=== PATIENT | female | born 1945 | race Caucasian/White ===

== ENCOUNTER 2016-03-27 15:44 | Emergency (ER) | payer MEDICARE ==
[2016-03-27 15:50] VITALS: PULSE 82; TEMP 97.5; BMI 24.6
--- NOTE | 2016-03-27 16:29 | DIRPT ---
CLINICAL DATA: Pain in left clavicle after falling today. EXAM: LEFT CLAVICLE - 2+ VIEWS COMPARISON: Shoulder films, dictated separately. Shoulder films of 02/08/2015 also reviewed. FINDINGS: Degenerative irregularity of the acromioclavicular joint. Visualized portion of the left hemithorax is normal. No acute fracture or dislocation. IMPRESSION: Degenerative change, without acute osseous finding. Electronically Signed By: Ross Moore M.D. On: 03/27/2016 16:27
--- NOTE | 2016-03-27 16:37 | DIRPT ---
CLINICAL DATA: 70-year-old who fell in her bathroom at home earlier today and injured the left shoulder. Initial encounter. EXAM: LEFT SHOULDER - 2+ VIEW COMPARISON: 02/08/2015. FINDINGS: No evidence of acute fracture or glenohumeral dislocation. Subacromial space well preserved. Severe degenerative changes involving the acromioclavicular joint as noted previously. Bone mineral density well-preserved for age. IMPRESSION: No acute osseous abnormality. 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 Electronically Signed By: Destin Fajardo M.D. On: 03/27/2016 16:34
[2016-03-27] MEDS ORDERED: Pharmacy Review for Metformin - IV Contrast Given SCH (17:00)
--- NOTE | 2016-03-27 17:10 | EDPRACDOC ---
- General Chief Complaint: Fall Stated Complaint: BROKEN COLLARBONE - HAS NOTE TO SEE DR. HEATH Time Seen by Provider: 03/27/16 16:29 Information Source: Patient Exam Limitations: No Limitations - History of Present Illness Onset: today HPI: PT PRESENTS WITH PAIN AND SWELLING TO HER NECK AFTER SHE FELL TWO DAYS AGO. STATES SHE HAS HAD INCREASED PAIN TODAY THAN PREVIOUSLY. PT HAS BRUISING NOTED TO THE AREA. PT HAS FULL ROM OF THE LEFT SHOULDER. PT STATES SHE HAS NOTED A PRESSURE TYPE FEELING IN HER NECK AREA. DENIES FEVER, CHILLS, NAUSEA OR VOMITING. Pain Severity: Reports: Mild Injuries/Pain Location: Reports: neck Reason for Fall: Reports: lost balance Loss of Consciousness: no loss of consciousness Modifying Factors: improves with: immobilization Associated Symptoms (Fall): Reports: denies symptoms Allergies/Adverse Reactions: Allergies No Known Allergies Allergy (Verified 03/27/16 15:47) Home Medications: Ambulatory Orders Ondansetron [Zofran Odt] 4 mg PO Q6H PRN #10 tab.rapdis 02/08/15 ED Past Medical History - History Reviewed Yes Nurses notes reviewed and agree except as marked - Patient Medical History Surgical History: Reports: Hysterectomy, Other (BTL) - Social Medical History Smoking Status: Never smoker EDM Review of Systems - Review of Systems ROS Negative Except as Marked: Yes All systems reviewed and were negative except as marked - Physical Exam Constitutional: Alert Oriented to: Time, Person, Place Last recorded Vital Signs: Last Vital Signs Temp 97.5 F 03/27/16 15:47 Pulse 82 03/27/16 15:47 Resp 18 03/27/16 15:47 BP 163/90 03/27/16 15:47 Pulse Ox 95 03/27/16 15:47 Oxygen Pulse Oxygen Saturation 95 O2 Device Room Air Oxygen Flow Rate Fraction of Inspired Oxygen ( FIO2) - HEENT Head: Normal ( normocephalic) Eye Exam: Normal (PERRL, EOMI, Sclera white) Oropharynx: Normal (Pharynx:Moist without exudate,Gums-no swelling) Nose: No Symptoms Reported (septum midline) Neck: Edema, Midline, Tender. negative: Bony Tenderness, Crepitus, Denies Pain , In Collar, Limited ROM, Lymphadenopathy, Meningeal Signs, Paraspinal Tenderness, Step off, Thyromegaly, Tracheal Deviation - Respiratory/Cardiovascular Respiratory: Normal - CTA (BBS clear to auscultation without adventitious sounds ) Cardiovascular: Normal (RRR without murmur, gallop or rub) - GI Auscultation: Normal (NABS) Palpation: Normal (Soft,No rebound or guarding, non distended) Tenderness: Non tender Centeno's Sign: Negative Rectal Exam: Deferred - Musculoskeletal Back: Normal (Non-Tender) Extremities: Normal (Normal tone, Pulses 2+ No cyanosis or edema, FROM) - Integumentary Skin: Normal, Warm, Dry Lymphatics: Normal (no adenopathy) - Neurologic Memory Impaired: Normal Motor Function: Normal (Normal tone, Pulses 2+ No cyanosis or edema, FROM) Cranial Nerve: Normal (CN II-X11 intact sensation, strength 5/5) Cerebellar: Normal Mood Description: Normal Perception: Normal ED Injury/Fall Exam - Physical Exam Head Injury: no evidence of injury Extremity Exam: no evidence of injury Skin: Normal, Warm, Dry - [place] Coma Score Best Eye Response (Jacob): (4) open spontaneously Best Verbal Response (Jacob): (5) oriented Best Motor Response (Jacob): (6) obeys commands [place] Total: 15 - Differential Diagnosis Contusion, Other - Results 03/27/16 17:21 03/27/16 17:21 Decision Time to Discharge: 18:56 - Departure Disposition: Home Condition: Stable Final Diagnosis: Accidental fall Ecchymosis of neck Qualifiers: Encounter type: initial encounter Qualified Code(s): S10.93XA - Contusion of unspecified part of neck, initial encounter Instructions: RICE: Routine Care for Injuries, Hematoma (ED) Education/Counseling Given To: Patient Education/Counseling Given Regarding: Diagnosis, Treatment, Prognosis, Follow Up Referrals: Julita De La O MD [Primary Care Provider] - One Week Prescriptions: No Action Ondansetron [Zofran Odt] 4 mg PO Q6H PRN #10 tab.rapdis PRN Reason: Nausea/Vomiting Additional Instructions: MOTRIN OR TYLENOL FOR PAIN. ICE OR HEAT TO THE AREA NEEDED FOR PAIN. RETURN TO THE ED FOR WORSENING SYMPTOMS OR CONCERNS
[2016-03-27 17:40] LABS: AUTOMATED EOSINOPHIL 2.2 % (0-5); AUTOMATED LYMPH 14.8 % (17-44); AUTOMATED MONOCYTE 5.1 % (3-10); AUTOMATED NEUTROPHIL 76.9 % (45-76); MPV 8.9 fL (7.4-10.4)
[2016-03-27 17:52] LABS: BLOOD UREA NITROGEN 14 MG/DL (7-17); CALCIUM 9.6 MG/DL (8.4-10.2); CALCULATED OSMOLALITY 269 MOs/Kg (270-290); CHLORIDE 101 mEq/L (98-107); GLUCOSE 96 MG/DL (70-99); SODIUM LEVEL 139 mEq/L (137-146); TOTAL PROTEIN 7.5 G/DL (6.3-8.2)
--- NOTE | 2016-03-27 18:43 | DIRPT ---
CLINICAL DATA: 70-year-old female who fell in the bathroom 2 days ago. Left neck swelling and bruising with pain. Initial encounter. Mild posttraumatic C6 anterior inferior endplate fracture in January 2015. EXAM: CT ANGIOGRAPHY NECK TECHNIQUE: Multidetector CT imaging of the neck was performed using the standard protocol during bolus administration of intravenous contrast. Multiplanar CT image reconstructions and MIPs were obtained to evaluate the vascular anatomy. Carotid stenosis measurements (when applicable) are obtained utilizing NASCET criteria, using the distal internal carotid diameter as the denominator. CONTRAST: 100 mL Isovue 370 COMPARISON: CT cervical spine 02/08/2015. FINDINGS: Skeleton: Osteopenia. No acute osseous abnormality identified. Degenerative changes in the cervical spine. Visualized paranasal sinuses and mastoids are clear. Other neck: Negative lung apices. No superior mediastinal lymphadenopathy. Negative thyroid, larynx, pharynx, parapharyngeal spaces, retropharyngeal space, sublingual space, submandibular glands, and parotid glands. No cervical lymphadenopathy. Immediately above the left clavicular head there is mild to moderate stranding in the subcutaneous fat and about the insertion of the left sternocleidomastoid muscle (series 2, image 33) compatible with contusion and/or hematoma. The visible left clavicle and left sternoclavicular joint appear intact. Visible left ribs appear intact. No organized or drainable fluid collection. Negative visualized brain parenchyma. Visualized orbits and scalp soft tissues are within normal limits. Aortic arch: 3 vessel arch configuration. No significant arch atherosclerosis. No great vessel origin stenosis. Right carotid system: Negative. Left carotid system: Negative left CCA origin and proximal left CCA, deep to the left supraclavicular findings described above. Negative left carotid bifurcation and cervical left ICA. Vertebral arteries:No proximal subclavian artery stenosis. Mild proximal left subclavian soft and calcified plaque. Normal vertebral artery origins, the left is dominant an the left V1 segment is mildly tortuous. The left vertebral artery is normal to the vertebrobasilar junction. Normal left PICA origin. The right vertebral artery is mildly non dominant and normal to the vertebrobasilar junction. Grossly negative visualized intracranial circulation. Basilar artery, ICA siphons, and carotid termini are patent. type left [employer] origin. IMPRESSION: 1. Mild soft tissue contusion/hematoma just superior to the left clavicular head. No associated left clavicle fracture or sternoclavicular joint injury. No other acute traumatic injury identified. 2. Negative for age CTA neck. No carotid or vertebral artery dissection, atherosclerosis, or stenosis. Electronically Signed By: Carito Trent M.D. On: 03/27/2016 18:41
[2016-03-27 21:32] VITALS: BP 143/81
== END 2016-03-27 19:53 | disposition home or self-care (01) ==
LOC: ED 15:44 → EDMC 19:53
DX: S10.93XA Contusion of unspecified part of neck, initial encounter (principal); W19.XXXA Unspecified fall, initial encounter; Y93.9 Activity, unspecified
CPT/HCPCS: 36415; 70498; 73000; 73030; 80053; 85025; 99282; A9698